=== PATIENT | male | born 1980 | race African-American/Black ===

== ENCOUNTER 2020-01-25 01:03 | Emergency (ER) | payer OTHER ==
[2020-01-25] MEDS ORDERED: HYDROCODONE/APAP 5/325 MG TAB ONE (02:01)
[2020-01-25] MEDS ORDERED: DOXYCYCLINE 100 MG CAP PO ONE (02:01)
[2020-01-25] MEDS ORDERED: LIDOCAINE 1% MPF 5 ML VIAL ONE (02:01)
--- NOTE | 2020-01-25 02:48 | ER ---
Nurse's Notes [facility] Name: Nabil Saunders Jr Age: 40 yrs Sex: Male : 1980 Arrival Date: 01/25/2020 Time: 01:08 Bed 2 Private MD: Diagnosis: Puncture wound with foreign body of left forearm-foreign body removed Presentation: 01/24 01:32 Chief complaint: Patient states: was fishing an hour ago when the hook caught into the grass and pulled hard the hook penetrated his left forearm. Coronavirus screen: Proceed with normal triage. Patient denies a cough. Patient denies shortness of breath or difficulty breathing. Patient denies measured and/or subjective temperature greater than 100.4F prior to today's visit. Patient denies travel on a cruise ship or to a country the [facility] currently lists as an affected area. Patient denies contact with known and/or suspected case of COVID-19. Ebola Screen: Patient negative for fever greater than or equal to 101.5 degrees Fahrenheit, and additional compatible Ebola Virus Disease symptoms Patient denies exposure to infectious person. Initial Sepsis Screen: Does the patient meet any 2 criteria? No. Patient's initial sepsis screen is negative. Does the patient have a suspected source of infection? No. Patient's initial sepsis screen is negative. Risk Assessment: Do you want to hurt yourself or someone else? Patient reports no desire to harm self or others. Onset of symptoms was January 25, 2020. 01:32 Method Of Arrival: Ambulatory 01:32 Acuity: OFELIA 4 Historical: - Allergies: 01:34 No Known Allergies; - Home Meds: 01:34 None [Active]; - PMHx: 01:34 None; - PSHx: 01:34 None; - Immunization history:: Adult Immunizations up to date. - Social history:: Smoking status: Patient reports the use of cigarette tobacco products, smokes one-half pack cigarettes per day. Screenin:36 Abuse screen: Denies threats or abuse. Denies injuries from another. Nutritional screening: No deficits noted. Tuberculosis screening: No symptoms or risk factors identified. Fall Risk None identified. Assessment: 01:35 General: Appears in no apparent distress. Behavior is calm, cooperative, appropriate for age. Pain: Denies pain. Neuro: Level of Consciousness is awake, alert, obeys commands, Oriented to person, place, time, situation, Appropriate for age. Cardiovascular: Capillary refill < 3 seconds. Respiratory: Airway is patent Respiratory effort is even, unlabored, Respiratory pattern is regular, symmetrical. GI: Abdomen is flat, non-distended. : No signs and/or symptoms were reported regarding the genitourinary system. EENT: No signs and/or symptoms were reported regarding the EENT system. Derm: Skin is intact, is healthy with good turgor, Skin is pink, warm \T\ dry. normal. Musculoskeletal: Circulation, motion, and sensation intact. Injury Description: Foreign body is located left forearm is Fish hook. 02:52 Reassessment: Patient appears in no apparent distress at this time. No changes from previously documented assessment. Patient and/or family updated on plan of care and expected duration. Pain level reassessed. Patient is alert, oriented x 3, equal unlabored respirations, skin warm/dry/pink. Vital Signs: 01:32 BP 131 / 84; Pulse 79; Resp 18; Temp 98.2; Pulse Ox 100% ; Weight 92.99 kg; Height 5 wh ft. 9 in. (175.26 cm); 02:45 BP 124 / 82; Pulse 74; Resp 18; Pulse Ox 99% on R/A; wh 02:52 BP 123 / 86; Pulse 80; Resp 18; Temp 98; Pulse Ox 100% on R/A; mg2 01:32 Body Mass Index 30.27 (92.99 kg, 175.26 cm) ED Course: 01:08 Patient arrived in ED. es 01:24 Rashid Mclean NP is PHCP. pm1 01:24 Jaylen Gordon MD is Attending Physician. pm1 01:24 Olievrio Cabrera is Primary Nurse. 01:34 Triage completed. 01:36 Arm band placed on right wrist. wh 01:36 Patient has correct armband on for positive identification. Bed in low position. Call light in reach. Side rails up X 1. Pulse ox on. NIBP on. 02:39 Assist provider with foreign body removal of a fish hook from left arm using Set up for mg2 procedure. Performed by Rashid Mclean NP Dressed with gauze bandage, Patient tolerated well. Patient did not have IV access during this emergency room visit. 02:40 Elbow Left 3 View XRAY In Process Unspecified. EDMS Administered Medications: 02:05 Drug: Lidocaine (1 %) 5 ml {Note: administered by the provider.} Volume: 5 ml; Route: mg2 Infiltration; 02:38 Follow up: Response: No adverse reaction mg2 02:13 Not Given (Physician Discretion; patient had a shot last 2017): Tetanus-Diphtheria mg2 Toxoid Adult 0.5 ml IM once 02:37 Drug: Doxycycline 100 mg Route: PO; mg2 02:38 Follow up: Response: No adverse reaction mg2 02:37 Drug: [place] 5 mg-325 mg 1 tabs Route: PO; mg2 02:38 Follow up: Response: No adverse reaction; Medication administered at discharge. mg2 Outcome: 02:48 Discharge ordered by . pm1 02:52 Discharged to home ambulatory, with crutches. mg2 02:52 Condition: stable 02:52 Discharge instructions given to patient, family, Instructed on discharge instructions, follow up and referral plans. medication usage, wound care, Demonstrated understanding of instructions, follow-up care, medications, wound care, Prescriptions given X 1. 02:53 Patient left the ED. mg2 Signatures: Dispatcher [employer] EDManju Thakkar Patrick, NP ICU TECH pm1 Oliverio Cabrera Michele, RN RN mg2
--- NOTE | 2020-01-25 02:48 | EDPHYS ---
Physician Documentation [facility] Name: Nabil Saunders Jr Age: 40 yrs Sex: Male : 1980 Arrival Date: 01/25/2020 Time: 01:08 Bed 2 Private MD: ED Physician Jaylen Gordon HPI: 01/24 02:33 This 40 yrs old Black Male presents to ER via Ambulatory with complaints of Fish hook pm1 in arm. 02:33 The patient or guardian complains of a puncture wound, fish hook. The complaints affect pm1 the dorsal aspect of left forearm, proximal aspect. Context: The problem was sustained outdoors. Onset: The symptoms/episode began/occurred today. Treatment prior to arrival includes: no previous treatment. Modifying factors: The symptoms are alleviated by nothing. the symptoms are aggravated by movement. Associated signs and symptoms: The patient has no apparent associated signs or symptoms, Pertinent negatives: numbness, swelling, tingling. Severity of symptoms: in the emergency department the symptoms are unchanged. The patient has not experienced similar symptoms in the past. Historical: - Allergies: 01:34 No Known Allergies; - Home Meds: 01:34 None [Active]; - PMHx: 01:34 None; - PSHx: 01:34 None; - Immunization history:: Adult Immunizations up to date. - Social history:: Smoking status: Patient reports the use of cigarette tobacco products, smokes one-half pack cigarettes per day. ROS: 02:33 Constitutional: Negative for fever, chills, and weight loss. pm1 02:33 Neuro: Negative for headache, weakness, numbness, tingling, and seizure. 02:33 MS/extremity: Positive for pain, puncture, of the dorsal aspect of left forearm, Negative for decreased range of motion, deformity. 02:33 Skin: Positive for puncture, of the dorsal aspect of left forearm, proximal aspect. 02:33 All other systems are negative. Exam: 02:33 Constitutional: This is a well developed, well nourished patient who is awake, alert, pm1 and in no acute distress. Head/Face: Normocephalic, atraumatic. 02:33 Cardiovascular: Exam negative for acute changes, Rate: normal, Rhythm: regular, Pulses: no pulse deficits are appreciated. 02:33 Respiratory: Exam negative for acute changes, respiratory distress, shortness of breath. 02:33 Musculoskeletal/extremity: Extremities: grossly normal except: noted in the dorsal aspect of left forearm proximal aspect: puncture, fish hook present , ROM: intact in all extremities, Circulation is intact in all extremities. 02:33 Skin: Appearance: normal except for affected area, injury, puncture(s), that are superficial, of the dorsal aspect of left forearm proximal aspect. Vital Signs: 01:32 BP 131 / 84; Pulse 79; Resp 18; Temp 98.2; Pulse Ox 100% ; Weight 92.99 kg; Height 5 wh ft. 9 in. (175.26 cm); 02:45 BP 124 / 82; Pulse 74; Resp 18; Pulse Ox 99% on R/A; wh 02:52 BP 123 / 86; Pulse 80; Resp 18; Temp 98; Pulse Ox 100% on R/A; mg2 01:32 Body Mass Index 30.27 (92.99 kg, 175.26 cm) Procedures: 02:10 Foreign Body Removal: a fishhook, from the left dorsal aspect of left forearm, by pm1 pushed hook to the edge of skin, hook apparently not sharp enough to advance through the skin. Placed a small incision with #11 blade and advanced hook through and cut off the end of the hook. Dressinx4s were used to dress the wound, The patient tolerated the removal well. MDM: 01:26 Patient medically screened. pm1 02:10 ED course: no arnol present on hook, will get x-ray to verify no foreign body present. pm1 02:41 Data reviewed: vital signs. Data interpreted: Pulse oximetry: on room air is 100 %. pm1 Interpretation: normal. Counseling: I had a detailed discussion with the patient and/or guardian regarding: the historical points, exam findings, and any diagnostic results supporting the discharge/admit diagnosis, radiology results, the need for outpatient follow up, to return to the emergency department if symptoms worsen or persist or if there are any questions or concerns that arise at home. 02:41 Special discussion: I discussed in detail with the patient the higher chance of wound pm1 infection based on his presenting history. 01/24 02:09 Order name: Elbow Left 3 View XRAY; Complete Time: 15:03 pm1 Administered Medications: 02:05 Drug: Lidocaine (1 %) 5 ml {Note: administered by the provider.} Volume: 5 ml; Route: mg2 Infiltration; 02:38 Follow up: Response: No adverse reaction mg2 02:13 Not Given (Physician Discretion; patient had a shot last 2017): Tetanus-Diphtheria mg2 Toxoid Adult 0.5 ml IM once 02:37 Drug: Doxycycline 100 mg Route: PO; mg2 02:38 Follow up: Response: No adverse reaction mg2 02:37 Drug: [place] 5 mg-325 mg 1 tabs Route: PO; mg2 02:38 Follow up: Response: No adverse reaction; Medication administered at discharge. mg2 Disposition: 04:22 Co-signature as Attending Physician, Jaylen Gordon MD I agree with the assessment and abhay plan of care. Disposition: 01/25/20 02:48 Discharged to Home. Impression: Puncture wound with foreign body of left forearm - foreign body removed. - Condition is Stable. - Discharge Instructions: Puncture Wound. - Prescriptions for Doxycycline Hyclate 100 mg Oral Tablet - take 1 tablet by ORAL route every 12 hours; 20 tablet. - Medication Reconciliation Form, Thank You Letter, Antibiotic Education, Prescription Opioid Use form. - Follow up: Emergency Department; When: As needed; Reason: Worsening of condition. Follow up: Private Physician; When: 2 - 3 days; Reason: Recheck today's complaints, Continuance of care, Re-evaluation by your physician. - Problem is new. - Symptoms have improved. Signatures: Dispatcher [employer] Jaylen Hall MD MD cha Marinas, Patrick, ENVIRONMENTAL CONSULTANT ENVIRONMENTAL CONSULTANT pm1 Oliverio Cabrera Michele, RN RN mg2 Corrections: (The following items were deleted from the chart) 02:53 02:48 01/25/2020 02:48 Discharged to Home. Impression: Puncture wound with foreign body mg2 of left forearm - foreign body removed. Condition is Stable. Forms are Medication Reconciliation Form, Thank You Letter, Antibiotic Education, Prescription Opioid Use. Follow up: Emergency Department; When: As needed; Reason: Worsening of condition. Follow up: Private Physician; When: 2 - 3 days; Reason: Recheck today's complaints, Continuance of care, Re-evaluation by your physician. Problem is new. Symptoms have improved. pm1
[2020-01-25 03:03] VITALS: BP 123/86; TEMP 98; O2SAT 100
--- NOTE | 2020-01-25 11:32 | RAD REPORT ---
EXAM DESCRIPTION: RAD - Elbow Left 3 View - 01/25/2020 2:40 am CLINICAL HISTORY: Left elbow pain. Fish hook removed FINDINGS: No fracture or dislocation is seen. No radiopaque foreign body noted Patient's arm is not flexed 90 degrees on the lateral limiting evaluation for joint effusion
== END 2020-01-25 02:53 | disposition home or self-care (01) ==
LOC: ER 01:03
PROC: 0JCH0ZZ Extirpation of Matter from Left Lower Arm Subcutaneous Tissue and Fascia, Open Approach (ICD-10-PCS; principal; 2020-01-25)
DX: S51.842A Puncture wound with foreign body of left forearm, initial encounter (principal); F17.210 Nicotine dependence, cigarettes, uncomplicated
CPT/HCPCS: 99284